=== PATIENT | female | born 2000 | race Caucasian/White ===

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

== ENCOUNTER → 2022-02-28 | Outpatient (CLI) | payer BC ==
[~2022-02-28] MED LIST changes: +CYMBALTA 60MG60 MG PO
== END ==
LOC: COL.CARD 07:37
DX: R00.2 Palpitations (principal)

== ENCOUNTER 2023-07-15 20:25 | Emergency (ER) | payer BC ==
[~2023-07-15] VITALS: Ht 177.8 cm; Wt 54.5 kg
[2023-07-15 20:49] LABS: BASO # 0.1 K/mm3 (0.0-0.2); BASO % 0.7 % (0.0-2.0); EOS # 0.4 K/mm3 (0.0-0.7); EOS % 3.8 % (0.0-4.0); GRAN # 5.7 K/mm3 (1.4-6.5); GRAN % 54.4 % (42.2-75.2); HEMOGLOBIN 12.3 g/dl (12.5-16.0); LYMPH # 3.3 K/mm3 (1.2-3.4); MEAN CELL VOLUME 85 fl (80.0-100.0); MEAN CORPUSCULAR HEMOGLOBIN 28 pg (27-31); MEAN CORPUSCULAR HGB CONC 32 g/dl (33.0-37.0); MEAN PLATELET VOLUME 10.3 fl (7.4-10.4); MONO # 0.9 K/mm3 (0.1-0.6); MONO % 8.9 % (1.7-9.3); PLATELET COUNT 233 K/mm3 (130-400); RED BLOOD COUNT 4.48 M/mm3 (4.10-5.30); REDCELL DISTRIBUTION WIDTH-CV 13.6 % (11.5-14.5)
[2023-07-15 21:03] LABS: ALANINE AMINOTRANSFERASE 8 U/L (0-55); ALKALINE PHOSPHATASE 52 U/L (40-150); ANION GAP 12 mmol/L (7-16); AST,SGOT 11 U/L (5-34); BILIRUBIN,TOTAL 0.2 mg/dL (0.2-1.2); BLOOD UREA NITROGEN 9 mg/dL (7-19); CALCIUM 9.7 mg/dL (8.4-10.2); CARBON DIOXIDE 18 mmol/L (22-29); CHLORIDE 108 mmol/L (98-107); GLUCOSE 74 mg/dL (70-99); POTASSIUM 3.5 mmol/L (3.5-4.5); SODIUM 138 mmol/L (136-145); TOTAL PROTEIN 7.9 gm/dL (6.2-8.1)
[2023-07-15 21:04] LABS: ALCOHOL(ethanol),MEDICAL < 10 mg/dL (0-10)
[2023-07-15 21:12] LABS: COLLECTION METHOD CLEAN CATCH
[2023-07-15 21:18] LABS: PH 6.5 (5.0-8.5); URINE APPEARANCE Clear (CLEAR/HAZY); URINE BLOOD Negative (NEGATIVE); URINE COLOR Yellow (YELLOW); URINE GLUCOSE Negative (NEGATIVE); URINE KETONE Negative (NEGATIVE); URINE NITRATE Negative (NEGATIVE); URINE PROTEIN(semi-quant) Negative (NEGATIVE); URINE UROBILINOGEN 0.2 E.U/dL (0.2-1.0)
[2023-07-15 21:19] LABS: MUCOUS Present (NOT PRESENT); SQUAMOUS EPITHELIAL 0-2 /hpf (0-10); URINE BACTERIA Rare /hpf (NONE SEEN); URINE RBC 0-2 /hpf (0-2)
[2023-07-15 21:21] LABS: ACETAMINOPHEN < 1.0 ug/mL (10-30); SALICYLATE < 5.0 mg/dL (15.0-30.0)
[2023-07-15 21:22] LABS: TSH w REFLEX 1.239 uIU/mL (0.350-4.940)
[2023-07-15 21:26] LABS: TRICYCLIC ANTIDEPRESS URINE NEGATIVE
[2023-07-16 02:23] VITALS: BP 124/93; PULSE 86; TEMP 98.2
== END 2023-07-16 02:25 | disposition home or self-care (01) ==
LOC: COL.ER 20:25
PROVIDERS: Family Medicine
DX: T56.891A Toxic effect of other metals, accidental (unintentional), initial encounter (principal); Z28.310 Unvaccinated for COVID-19
CPT/HCPCS: J7030